=== PATIENT | female | born 1940 | race Caucasian/White ===

== ENCOUNTER 2017-12-16 11:39 | Observation (INO) ==
--- NOTE | 2017-12-16 12:01 | Emergency Department Note ---
Disposition Clinical Impression: Inability to ambulate due to hip Fall Qualifiers: Encounter type: initial encounter Qualified Code(s): W19.XXXA - Unspecified fall, initial encounter Disposition: Admitted As Inpatient Condition: Fair Referrals: Davis Abreu DO [Non-Partnered Physician] - Forms: ED Satisfaction Letter Time of Disposition: 15:35 General Adult HPI - General Chief complaint: ED Fall Stated complaint: Fall Time Seen by Provider: 12/16/17 11:47 Source: patient, EMS Mode of arrival: EMS Limitations: no limitations Nursing Notes Reviewed: Yes Vital Signs Reviewed: Yes - History of Present Illness HPI Narrative: 77-year-old female presenting to the emergency department after a mechanical fall. Patient states she recently moved into a new home. She was walking with her walker when it got caught and she into the walker and fell over. Patient denies loss of consciousness. Denies hitting her head. Patient states she is having pain in her right low back, hip and femur. Patient states she laid on the ground for approximately 30 minutes before her daughter came and got her. Denies any symptoms before the fall. Denies any chest pain, shortness of breath or dizziness. Patient denies any of those symptoms now as well. Pain Scale: 10 - Related Data Home Medications Medication Instructions Recorded Confirmed Fluvoxamine Maleate 50 mg PO DAILY 12/16/17 12/16/17 Lisinopril [Zestril] 10 mg PO DAILY 12/16/17 12/16/17 Naproxen [Naproxen] 500 mg PO DAILY 12/16/17 12/16/17 Omeprazole [PriLOSEC] 20 mg PO DAILY 12/16/17 12/16/17 Venlafaxine XR (24 HR) [Effexor XR] 150 mg PO DAILY 12/16/17 12/16/17 Allergies Allergy/AdvReac Type Severity Reaction Status Date / Time morphine Allergy "It will Verified 12/16/17 12:50 kill me" All systems ED: reviewed and negative except as stated. Constitutional: Denies: fever, chills Eyes: Reports: as per HPI ENT ED: Reports: as per HPI Cardiovascular: Denies: chest pain, palpitations, dyspnea on exertion Respiratory: Denies: cough, dyspnea, wheezes Gastrointestinal: Denies: abdominal pain, nausea, vomiting Genitourinary: Reports: as per HPI Musculoskeletal: Reports: back pain, arthralgia, myalgia Integumentary: Reports: abrasion Neurological: Denies: weakness, numbness, paresthesias Psychiatric: Reports: as per HPI Endocrine: Reports: as per HPI Hematological/Lymphatic: Reports: as per HPI Allergic/Immunologic: Reports: as per HPI Past Medical History - Past Medical History Attestation: Yes The following information was validated with the patient. Medical history: Reports: cancer, diabetes, hyperlipidemia, hypertension - Social History Smoking Status: Never smoker Smokeless Tobacco Status: No Alcohol use: Reports: none Drug use: Reports: none Physical Exam - General Limitations: no limitations General appearance: alert, in no apparent distress - Head Head exam: atraumatic, normocephalic, normal inspection - Eye Eye exam: Present: normal appearance. Absent: scleral icterus, conjunctival injection - ENT ENT exam: normal exam, mucous membranes moist - Neck Neck exam: Present: normal inspection, full ROM. Absent: tenderness, meningismus - Chest Chest inspection: Present: normal inspection, symmetric chest wall rise. Absent : tenderness, rash - Respiratory Respiratory exam: Present: normal lung sounds bilaterally. Absent: respiratory distress, wheezes - Cardiovascular Cardiovascular exam: Present: regular rate, normal rhythm, normal heart sounds - Abdominal Exam Abdominal exam: Present: soft, Non-Tender. Absent: distention, guarding, rebound - Extremities Exam Extremities exam: Present: other (Tenderness to palpation of the right hip and right femur. Superficial abrasion noted on the right tib-fib. Bilateral lower extremities neurovascularly intact.) - Back Exam Back exam: Present: normal inspection, tenderness (Tenderness at palpation of the lower lumbar spine. No tenderness to palpation of the cervical or thoracic spine.) - Neurological Exam Neurological exam: Present: alert, oriented X3 - Psychiatric Psychiatric exam: Present: normal affect, normal mood - Skin Skin exam: Present: warm Course Course Narrative: 77-year-old female presenting after a fall. Patient is alert and oriented 3 in room with stable vital signs. Denies any prodromal symptoms. At this time complains only includes right lower lumbar pain, right hip pain and right femur pain. Patient does have superficial abrasion on the right tib-fib but otherwise physical exam benign. We will plan to get radiographs of these images. Disposition pending results. Patient agrees with this plan. - Reevaluation(s) Reevaluation #1: Patient's radiographs within normal limits. Patient continues to have severe pain in the right hip and lower lumbar area. Another 50 g of fentanyl given the patient still having pain and inability to ambulate. We will perform a CT of the pelvis and lumbar spine rule out any occult fracture. Patient remains alert and oriented times [place] stable vital signs. Patient agrees with this plan. Reevaluation #2: CT within normal limits. Patient still unable to ambulate after 100 g of fentanyl. Patient does live alone therefore we will plan to admit the patient for physical therapy and pain control. Patient is alert and oriented 3 with stable vital signs here patient agrees this plan. The hospitalist diamond cutter Dr. Elias agrees to accept the patient at this time. Vital Signs Temperature 98.6 F 12/16/17 11:45 Pulse Rate 91 12/16/17 11:45 Respiratory Rate 20 12/16/17 11:45 Blood Pressure 150/92 12/16/17 11:45 O2 Sat by Pulse Oximetry 100 12/16/17 11:45 Temperature 98.6 F 12/16/17 11:45 Pulse Rate 84 12/16/17 14:08 Respiratory Rate 18 12/16/17 12:52 Blood Pressure 150/92 12/16/17 11:45 O2 Sat by Pulse Oximetry 100 12/16/17 14:08 Oxygen Delivery Oxygen Delivery Room Air Medical Decision Making - Lab Data Result diagrams: 12/16/17 14:33 12/16/17 14:33 Lab Results 12/16/17 12/16/17 12/16/17 Range/Units 14:12 14:33 14:33 WBC 11.3 H (4.3-11.1) K/mcL RBC 4.58 (3.82-4.97) M/mcL Hgb 14.2 (11.5-15.4) g/dL Hct 43.3 (35.3-44.9) % MCV 94.5 (83.0-100.0) fL MCH 31.0 (28.0-33.3) pg MCHC 32.8 (31.6-35.5) g/dL RDW 13.9 (11.5-14.5) % Plt Count 226 (140-400) K/mcL MPV 10.9 (9.4-12.4) fL Immature Gran % 0.3 (0-4) % Seg Neutrophils % 61.4 % Lymphocytes % 29.6 % Monocytes % 7.0 % Eosinophils % 1.2 % Basophils % 0.5 % Neutrophils # 6.9 (1.6-8.9) K/mcL Lymphocytes # 3.3 (0.6-4.6) K/mcL Monocytes # 0.8 (0.0-1.3) K/mcL Eosinophils # 0.1 (0.0-0.6) K/mcL Basophils # 0.1 (0.0-0.2) K/mcL Sodium 138 (136-145) mEq/L Potassium 4.8 (3.5-5.1) mEq/L Chloride 106 (98-107) mEq/L Carbon Dioxide 25 (23-29) mEq/L BUN 22 (8-23) mg/dL Creatinine 1.05 (0.60-1.20) mg/dL Est GFR ( Amer) > 60 (> 60) Est GFR (Non-Af Amer) 51 L (> 60) BUN/Creatinine Ratio 21 (6-26) Glucose 168 H (70-105) mg/dL POC Glucose 148 H (70-99) mg/dL Calculated Osmolality 293 (280-300) Calcium 9.8 (8.6-10.3) mg/dL Creatine Kinase 57 (30-223) Units/L Attestation Statement - Attestation Attestation: I, Sharif Lieberman DO, examined this patient [id number] and my medical decision-making was reviewed with Dr. Laquita Cannon, Resident Physician. I agree with the documented findings, disposition and treatment plan as described except to the extent set forth below. Please see my progress notes for details.
[2017-12-16] MEDS ORDERED: *HR* FentaNYL (PF) 100 MCG/2 ML VIAL IVP ONE ×2 (12:04→13:38)
--- NOTE | 2017-12-16 12:34 | Emergency Department Note ---
Disposition Clinical Impression: Inability to ambulate due to hip Fall Qualifiers: Encounter type: initial encounter Qualified Code(s): W19.XXXA - Unspecified fall, initial encounter Disposition: Admitted As Inpatient Condition: Fair Referrals: Davis Abreu DO [Primary Care Provider] - Forms: ED Satisfaction Letter Time of Disposition: 15:37 General Adult HPI - General Chief complaint: ED Fall Stated complaint: Fall Time Seen by Provider: 12/16/17 11:47 Source: patient, EMS Limitations: no limitations - History of Present Illness Pain Scale: 10 - Related Data Home Medications Medication Instructions Recorded Confirmed Fluvoxamine Maleate 50 mg PO DAILY 12/16/17 12/16/17 Lisinopril [Zestril] 10 mg PO DAILY 12/16/17 12/16/17 Naproxen [Naproxen] 500 mg PO DAILY 12/16/17 12/16/17 Omeprazole [PriLOSEC] 20 mg PO DAILY 12/16/17 12/16/17 Venlafaxine XR (24 HR) [Effexor XR] 150 mg PO DAILY 12/16/17 12/16/17 Allergies Allergy/AdvReac Type Severity Reaction Status Date / Time morphine Allergy "It will Verified 12/16/17 12:50 kill me" Past Medical History - Past Medical History Medical history: Reports: cancer, diabetes, hyperlipidemia, hypertension - Social History Smoking Status: Never smoker Smokeless Tobacco Status: No Alcohol use: Reports: none Drug use: Reports: none Physical Exam - General Limitations: no limitations General appearance: alert, in no apparent distress Course Vital Signs Temperature 98.6 F 12/16/17 11:45 Pulse Rate 91 12/16/17 11:45 Respiratory Rate 20 12/16/17 11:45 Blood Pressure 150/92 12/16/17 11:45 O2 Sat by Pulse Oximetry 100 12/16/17 11:45 Temperature 98.6 F 12/16/17 11:45 Pulse Rate 84 12/16/17 14:08 Respiratory Rate 18 12/16/17 12:52 Blood Pressure 150/92 12/16/17 11:45 O2 Sat by Pulse Oximetry 100 12/16/17 14:08 Oxygen Delivery Oxygen Delivery Room Air Medical Decision Making - Lab Data Result diagrams: 12/16/17 14:33 12/16/17 14:33 Lab Results 10/05/3112/16/17 12/16/17 Range/Units 14:12 14:33 14:33 WBC 11.3 H (4.3-11.1) K/mcL RBC 4.58 (3.82-4.97) M/mcL Hgb 14.2 (11.5-15.4) g/dL Hct 43.3 (35.3-44.9) % MCV 94.5 (83.0-100.0) fL MCH 31.0 (28.0-33.3) pg MCHC 32.8 (31.6-35.5) g/dL RDW 13.9 (11.5-14.5) % Plt Count 226 (140-400) K/mcL MPV 10.9 (9.4-12.4) fL Immature Gran % 0.3 (0-4) % Seg Neutrophils % 61.4 % Lymphocytes % 29.6 % Monocytes % 7.0 % Eosinophils % 1.2 % Basophils % 0.5 % Neutrophils # 6.9 (1.6-8.9) K/mcL Lymphocytes # 3.3 (0.6-4.6) K/mcL Monocytes # 0.8 (0.0-1.3) K/mcL Eosinophils # 0.1 (0.0-0.6) K/mcL Basophils # 0.1 (0.0-0.2) K/mcL Sodium 138 (136-145) mEq/L Potassium 4.8 (3.5-5.1) mEq/L Chloride 106 (98-107) mEq/L Carbon Dioxide 25 (23-29) mEq/L BUN 22 (8-23) mg/dL Creatinine 1.05 (0.60-1.20) mg/dL Est GFR ( Amer) > 60 (> 60) Est GFR (Non-Af Amer) 51 L (> 60) BUN/Creatinine Ratio 21 (6-26) Glucose 168 H (70-105) mg/dL POC Glucose 148 H (70-99) mg/dL Calculated Osmolality 293 (280-300) Calcium 9.8 (8.6-10.3) mg/dL Creatine Kinase 57 (30-223) Units/L Attestation Statement - Attestation Attestation: I, Sharif Lieberman DO, examined this patient [id number] and my medical decision-making was reviewed with Dr. Laquita Cannon, Resident Physician. I agree with the documented findings, disposition and treatment plan as described except to the extent set forth below. Please see my progress notes for details. 77-year-old female presents emergency room for evaluation of a mechanical fall home. Patient was using her walker leaning over it on her arms and the walker slipped out from underneath her. She fell forward tingling her legs in the walker. She has significant pain in her right knee and right hip as well as lower back. Her back pain appears to be an acute on chronic related issue here today secondary to trying to move from her current living situation to another place. The patient denied any head injury. She is not currently on a blood thinners. Signs otherwise stable. There is no visible signs of head trauma she is alert she is oriented she answers questions. She has no gross deformity to the bilateral shoulders elbows or wrists. Her lungs are clear heart is regular. There is no crepitus or deformity to the chest wall abdomen is soft nontender nondistended. Patient has pain with palpation over the lower lumbar spine and right hip radiates into the right leg. Pelvis appears to be stable. She has good pulses in her bilateral lower extremities in the DP and PT distribution. There is some dusky coloration to the toes but her feet are otherwise warm. Patient will be evaluated here today for possible traumatic related injuries to the lower extremities. EKG will be collected as well. Patient will have pelvic films on plain films of the extremity. Otherwise she has no other complaints or issues or precluding symptoms prior to the events here today. Family is with him at the bedside and witnessed the entire event. She did slip to the floor and had to actually have the door unlocked so she lined on the floor for anywhere from 15 minutes to half hour. Patient has no other acute medical concerns or issues this point. See detailed documentation of the physical exam, medical intervention, medical decision-making disposition the resident physician's note. 1400 X-rays were all unremarkable this time. The patient was discussed and reviewed with concern for the imaging. We will do CT imaging of the pelvis and the right leg. We will add on labs including a CPK urinalysis CBC and chemistry. Patient may not be able to ambulate and is unable to go home secondary the family not being able to take care of her. We will continue to monitor here until disposition is determined. No other acute etiology noted at this time. 1530 Patient discussed with the hospitals. Admission process will be established secondary to inability to ambulate. Patient is otherwise clinically stable. No other concerns or issues. No acute findings on CT imaging of the pelvis and right lower extremity account for the pain symptoms she is having at this point. Patient will be admitted for symptomatically control and possible social media manager consultation evaluation.
[2017-12-16 14:46] LABS: Basophils # 0.1 K/mcL (0.0-0.2); Basophils % 0.5 %; Eosinophils # 0.1 K/mcL (0.0-0.6); Eosinophils % 1.2 %; Hematocrit 43.3 % (35.3-44.9); Hemoglobin 14.2 g/dL (11.5-15.4); Immature Granulocytes % 0.3 % (0-4); Lymphocytes # 3.3 K/mcL (0.6-4.6); Lymphocytes % 29.6 %; Mean Corpuscular HGB Conc 32.8 g/dL (31.6-35.5); Mean Corpuscular Volume 94.5 fL (83.0-100.0); Mean Platelet Volume 10.9 fL (9.4-12.4); Monocytes # 0.8 K/mcL (0.0-1.3); Neutrophils # 6.9 K/mcL (1.6-8.9); Platelet Count 226 K/mcL (140-400); Red Blood Count 4.58 M/mcL (3.82-4.97); Red Cell Distribution Width 13.9 % (11.5-14.5); Segmented Neutrophils % 61.4 %
[2017-12-16 15:03] LABS: BUN/Creatinine Ratio 21 (6-26); Blood Urea Nitrogen 22 mg/dL (8-23); Calcium 9.8 mg/dL (8.6-10.3); Carbon Dioxide 25 mEq/L (23-29); Chloride 106 mEq/L (98-107); Creatine Kinase 57 Units/L (30-223); Glucose 168 mg/dL (70-105); Osmolality,Calculated 293 (280-300); Potassium 4.8 mEq/L (3.5-5.1); Sodium 138 mEq/L (136-145); eGFR For Non-African Americans 51 (> 60)
[2017-12-16] MEDS ORDERED: Naloxone 0.4 MG/ML INJ IVP PRN (18:53)
[2017-12-16] MEDS ORDERED: Acetaminophen 325 MG TABLET PO PRN (18:53)
--- NOTE | 2017-12-16 19:10 | Internal Med History&Physical ---
Date of Encounter: 12/16/17 Time of Encounter: 18:15 Internal Medicine - H&P: HPI Chief complaint: Fall Admitted From: Home Plans for Post Hospital Care: Home History of present illness: Ms. Hernandez is a 77 year old female with past medical history significant for diabetes, hypertension, hyperlipidemia, depression, acid reflux, and chronic back pain who presents following a mechanical fall today at home from a standing height. Denies hitting head or loss of consciousness. Was leaning over walker with wheels and tripped over threshold in her house. States she landed on her right leg which is where her pain is centralized in addition to her back. Has chronic lower bilateral back pain but the pain is more on the right side of her back with her right leg pain currently. Pain is rated at 6/ 10 at the worst and is described as an aching soreness. Pain is exacerbated with movement and improved with rest and pain medication. Tried using heating pad at home without relief. Normally ambulates without assistive devices but recently has been moving into a new home and has aggravated her chronic back pain and therefore has needed to use a wheeled walker the past few days. Does not regularly check blood sugar but states it averages in the low to mid 100's and is currently well controlled. Also does not regularly check blood pressure at home but reports that it is also currently well controlled. Past Med Surg Social Fam HX - Past Medical History Medical history: cancer, diabetes, hyperlipidemia, hypertension Additional medical history: breast cancer. chronic back pain - Past Surgical History Additional surgical history: left breast lumpectomy. bilateral knees - Social History Smoking Status: Never smoker Smokeless Tobacco Status: No Alcohol use: none Drug use: none - Family History Mother Hx Family Cardiac Disorders: Yes Hx Family Cancer: Yes Father Hx Family Cardiac Disorders: Yes Hx Family Cancer: Yes Internal Medicine - H&P: Meds Fluvoxamine Maleate 50 mg PO DAILY 12/16/17 [History] Lisinopril [Zestril] 10 mg PO DAILY 12/16/17 [History] Naproxen [Naproxen] 500 mg PO DAILY 12/16/17 [History] Omeprazole [PriLOSEC] 20 mg PO DAILY 12/16/17 [History] Venlafaxine XR (24 HR) [Effexor XR] 150 mg PO DAILY 12/16/17 [History] 3 Allergy/AdvReac Type Severity Reaction Status Date / Time morphine Allergy "It will Verified 12/16/17 12:50 kill me" All Systems PM: A 10-system review of systems was performed and is negative for pertinent findings except as documented above in the HPI. - Constitutional Vitals: Temp Pulse Resp BP Pulse Ox 98.6 F 84 16 109/79 100 12/16/17 11:45 12/16/17 14:08 12/16/17 16:30 12/16/17 16:30 12/16/17 14:08 Exam: General: Alert and oriented. Skin:Normal color, no rash. Laceration noted to right lower extremity, dry/ intact, open to air. HEENT: Pupils equal, round and reactive. Cardiovascular:Normal S1 & S2, no rubs, murmurs or gallops. No JVD. Pulse regular. Lungs:Normal breath sounds, no wheezes or crackles. Abdomen:Soft, non-tender, no rigidity. Extremities:No deformity, no edema, no joint swelling or clubbing. Tenderness noted on palpation to right pelvic and right femur area. Distal PMS intact. Neurological:Normal cognition and motor skills. Pulses:Carotid and radial pulses normal +2. Rest of the physical exam is non contributory. Internal Med - H&P Results - Labs CBC & Chem 7: 12/16/17 14:33 12/16/17 14:33 - Assessment and plan (1) Fall Current Visit: Yes Status: Acute Assessment and plan: Pain control with Toradol and Tylenol. Ice packs as needed. Up with assist only. Qualifiers: Encounter type: initial encounter Qualified Code(s): W19.XXXA - Unspecified fall, initial encounter (2) Inability to ambulate due to hip Current Visit: Yes Status: Acute Assessment and plan: Physical therapy consulted for ambulation. Social work consulted for any potential discharge needs. (3) Increased white blood cell count Current Visit: Yes Status: Acute Assessment and plan: No source of infection. Repeat labs in a.m. Qualifiers: Leukocytosis type: unspecified Qualified Code(s): D72.829 - Elevated white blood cell count, unspecified (4) Diabetes mellitus Current Visit: Yes Status: Chronic Assessment and plan: Continue home medications. Diabetic diet. ACHS accucheck. Qualifiers: Diabetes mellitus type: type 2 Diabetes mellitus intermediate frame tender insulin use: without usp use Diabetes mellitus complication status: without complication Qualified Code(s): E11.9 - Type 2 diabetes mellitus without complications - Time Spent With Patient Total time spent is greater than 50% in coordination of care (as documented) at patient's floor/unit and/or counseling patient:
[2017-12-16] MEDS ORDERED: Dextrose Gel 15 GM/37.5 ML TUBE PO PRN ×2 (19:18)
[2017-12-16] MEDS ORDERED: D5% in Water 1,000 ML IVC PRN (19:18)
[2017-12-16] MEDS ORDERED: *HR* Dextrose 50 % in Water (Syg) 50 ML SYRINGE IVP PRN (19:18)
[2017-12-16] MEDS: Ketorolac 15 MG/ML VIAL IVP PRN (21:49)
[2017-12-17 06:39] LABS: Basophils % 0.6 %; Eosinophils # 0.2 K/mcL (0.0-0.6); Eosinophils % 3.2 %; Hematocrit 40.1 % (35.3-44.9); Hemoglobin 13.2 g/dL (11.5-15.4); Immature Granulocytes % 0.1 % (0-4); Lymphocytes # 2.9 K/mcL (0.6-4.6); Lymphocytes % 40.1 %; Mean Corpuscular HGB Conc 32.9 g/dL (31.6-35.5); Mean Corpuscular Hemoglobin 31.1 pg (28.0-33.3); Mean Corpuscular Volume 94.6 fL (83.0-100.0); Monocytes # 0.7 K/mcL (0.0-1.3); Monocytes % 10.2 %; Neutrophils # 3.3 K/mcL (1.6-8.9); Platelet Count 204 K/mcL (140-400); Red Blood Count 4.24 M/mcL (3.82-4.97); Red Cell Distribution Width 14.2 % (11.5-14.5); Segmented Neutrophils % 45.8 %
[2017-12-17 07:00] LABS: BUN/Creatinine Ratio 24 (6-26); Blood Urea Nitrogen 24 mg/dL (8-23); Calcium 9.2 mg/dL (8.6-10.3); Carbon Dioxide 20 mEq/L (23-29); Chloride 108 mEq/L (98-107); Glucose 177 mg/dL (70-105); Osmolality,Calculated 296 (280-300); Sodium 139 mEq/L (136-145); eGFR For Non-African Americans 53 (> 60)
--- NOTE | 2017-12-17 07:40 | Internal Med Progress Note ---
Hospitalist Progress Note - Encounter Date of Encounter: 12/17/17 Time of Encounter: 07:40 - Exam Vitals: Temp Pulse Resp BP Pulse Ox 97.7 F 63 16 105/61 94 12/17/17 06:53 12/17/17 06:53 12/17/17 06:53 12/17/17 06:53 12/17/17 06:53 Exam: General: Alert and oriented. Skin:Normal color, no rash. Laceration noted to right lower extremity, dry/ intact, open to air. HEENT: Pupils equal, round and reactive. Cardiovascular:Normal S1 & S2, no rubs, murmurs or gallops. No JVD. Pulse regular. Lungs:Normal breath sounds, no wheezes or crackles. Abdomen:Soft, non-tender, no rigidity. Extremities:No deformity, no edema, no joint swelling or clubbing. Tenderness noted on palpation to right pelvic and right femur area. Distal PMS intact. Neurological:Normal cognition and motor skills. Pulses:Carotid and radial pulses normal +2. Rest of the physical exam is non contributory. - Assessment and Plan (1) Fall Current Visit: Yes Status: Acute Assessment and Plan: CT of hip and pelvis negative for any fractures or abnormalities Pain control with Toradol and Tylenol. Ice packs as needed. Up with assist only. (2) Inability to ambulate due to hip Current Visit: Yes Status: Acute Assessment and Plan: Physical therapy consulted for ambulation. Social work consulted for any potential discharge needs. (3) Increased white blood cell count Current Visit: Yes Status: Acute Assessment and Plan: Resolved (4) Diabetes mellitus Current Visit: Yes Status: Chronic Assessment and Plan: Continue home medications. Diabetic diet. ACHS accucheck. DVT Prophylaxis: SCDs - Time Spent with Patient Total time spent is greater than 50% in coordination of care (as documented) at patient's floor/unit and/or counseling patient: Internal Medicine: Result - Labs CBC & Chem 7: 12/17/17 06:13 12/17/17 06:13 Labs: Short CBC 12/17/17 Range/Units 06:13 WBC 7.2 (4.3-11.1) K/mcL Hgb 13.2 (11.5-15.4) g/dL Hct 40.1 (35.3-44.9) % Plt Count 204 (140-400) K/mcL Neutrophils # 3.3 (1.6-8.9) K/mcL BMP 12/17/17 06:13 Sodium 139 Potassium 4.0 Chloride 108 H Carbon Dioxide 20 L BUN 24 H Creatinine 1.02 Glucose 177 H Calcium 9.2 Consult Discharge Plan - Plan Referrals: Davis Abreu DO [Primary Care Provider] - (1) Fall Qualifiers: Encounter type: initial encounter Qualified Code(s): W19.XXXA - Unspecified fall, initial encounter (3) Increased white blood cell count Qualifiers: Leukocytosis type: unspecified Qualified Code(s): D72.829 - Elevated white blood cell count, unspecified (4) Diabetes mellitus Qualifiers: Diabetes mellitus type: type 2 Diabetes mellitus intermediate project manager insulin use: without intermediate project manager use Diabetes mellitus complication status: without complication Qualified Code(s): E11.9 - Type 2 diabetes mellitus without complications
[2017-12-17] MEDS ORDERED: *HR* Glimepiride 2 MG TABLET PO SCH (08:00)
[2017-12-17] MEDS ORDERED: *HR* FentaNYL (PF) 100 MCG/2 ML VIAL IVP PRN (08:58)
[2017-12-17] MEDS: Ketorolac 15 MG/ML VIAL IVP PRN ×2 (09:14→19:08)
[2017-12-17] MEDS: Venlafaxine XR (24 HR) 150 MG CAP.ER.24H PO SCH (09:15)
[2017-12-17] MEDS: Insulin LISPRO 300 UNITS/3 ML VIAL SQ SCH ×2 (19:38→22:41)
[2017-12-17] MEDS ORDERED: Gabapentin 100 MG CAPSULE PO ONE (20:06)
[2017-12-17] MEDS: (Linaclotide [Linzess] 145 MCG) PO SCH (22:20)
[2017-12-18 02:23] LABS: Calcium 9.1 mg/dL (8.6-10.3); Potassium 3.9 mEq/L (3.5-5.1)
[2017-12-18] MEDS: Insulin LISPRO 300 UNITS/3 ML VIAL SQ SCH ×4 (08:04→20:58)
[2017-12-18] MEDS: (Linaclotide [Linzess] 145 MCG) PO SCH (08:35)
[2017-12-18] MEDS: Venlafaxine XR (24 HR) 150 MG CAP.ER.24H PO SCH (08:35)
[2017-12-18] MEDS ORDERED: *HR* HYDROcodone/Acet 5/325 mg TABLET PO PRN ×2 (09:22→10:20)
[2017-12-18] MEDS ORDERED: *HR* FentaNYL (PF) 100 MCG/2 ML VIAL IVP PRN (09:24)
--- NOTE | 2017-12-18 09:25 | Internal Med Progress Note ---
Hospitalist Progress Note - Encounter Date of Encounter: 12/18/17 Time of Encounter: 09:00 - Subjective Interval History: Patient is complaining of severe lower back pain radiating to her right lower extremities worse with moving her right lower extremities. Patient stated she could not ambulate at all - Exam Vitals: Temp Pulse Resp BP Pulse Ox 97.8 F 80 18 96/52 95 12/18/17 07:26 12/18/17 07:26 12/18/17 07:26 12/18/17 07:26 12/18/17 07:26 Exam: General: Alert and oriented. Skin:Normal color, no rash. Laceration noted to right lower extremity, dry/ intact, open to air. HEENT: Pupils equal, round and reactive. Cardiovascular:Normal S1 & S2, no rubs, murmurs or gallops. No JVD. Pulse regular. Lungs:Normal breath sounds, no wheezes or crackles. Abdomen:Soft, non-tender, no rigidity. Extremities:No deformity, no edema, no joint swelling or clubbing. Tenderness noted on palpation to right pelvic and right femur area. Leg raising test positive right lower extremities, diffuse tenderness right paraspinal area lumbar spine Neurological:Normal cognition and motor skills. Pulses:Carotid and radial pulses normal +2. Rest of the physical exam is non contributory. - Assessment and Plan (1) Fall Current Visit: Yes Status: Acute (2) Inability to ambulate due to hip Current Visit: Yes Status: Acute (3) Increased white blood cell count Current Visit: Yes Status: Acute (4) Diabetes mellitus Current Visit: Yes Status: Chronic - Summary of Assessment and Plan Summary of Assessment and Plan: Possible disc prolapse, we will add steroids, Prednisone 40 mg BID, Will check MRI [place] spine , PT OT , add muscle relaxant, Lidoderm patch it to placed right paraspinal area lumbar spine, ambulate patient as tolerated, if MRI negative and pain under good control , possible discharge next a.m. - Time Spent with Patient Total time spent is greater than 50% in coordination of care (as documented) at patient's floor/unit and/or counseling patient: 25 - 35 minutes Internal Medicine: Result - Labs CBC & Chem 7: 12/17/17 06:13 12/18/17 01:13 Labs: BMP 12/18/17 01:13 Sodium 137 Potassium 3.9 Chloride 107 Carbon Dioxide 23 BUN 27 H Creatinine 1.14 Glucose 146 H Calcium 9.1 Consult Discharge Plan - Plan Referrals: Davis Abreu DO [Primary Care Provider] - (1) Fall Qualifiers: Encounter type: initial encounter Qualified Code(s): W19.XXXA - Unspecified fall, initial encounter (3) Increased white blood cell count Qualifiers: Leukocytosis type: unspecified Qualified Code(s): D72.829 - Elevated white blood cell count, unspecified (4) Diabetes mellitus Qualifiers: Diabetes mellitus type: type 2 Diabetes mellitus skilled nursing insulin use: without adjunct faculty for medical terminology use Diabetes mellitus complication status: without complication Qualified Code(s): E11.9 - Type 2 diabetes mellitus without complications
[2017-12-18] MEDS ORDERED: *HR* LORazepam 2 MG/ML VIAL IVP ONE (09:56)
[2017-12-18] MEDS ORDERED: *HR* OxyCODONE Immed Rel 5 MG TABLET PO PRN (10:22)
[2017-12-18] MEDS ORDERED: methylPREDNISolone 125 MG/2 ML VIAL IVP ONE (14:48)
[2017-12-19] MEDS: predniSONE 20 MG TABLET PO SCH (07:23)
[2017-12-19] MEDS: Venlafaxine XR (24 HR) 150 MG CAP.ER.24H PO SCH (07:23)
[2017-12-19] MEDS: (Linaclotide [Linzess] 145 MCG) PO SCH (07:30)
[2017-12-19] MEDS: Insulin LISPRO 300 UNITS/3 ML VIAL SQ SCH ×4 (07:30→21:31)
--- NOTE | 2017-12-19 11:43 | Internal Med Progress Note ---
Hospitalist Progress Note - Encounter Date of Encounter: 12/19/17 Time of Encounter: 10:00 - Subjective Interval History: Patient continue to have trouble with ambulation, complaining of severe lower back pain radiating to her right lower extremities, mild improvement compared to yesterday, today she was able to sit at the edge of the bed . No motor or sensory changes l - Exam Vitals: Temp Pulse Resp BP Pulse Ox 97.6 F 7 16 122/75 94 12/19/17 07:14 12/19/17 07:14 12/19/17 07:14 12/19/17 07:14 12/19/17 07:14 Exam: General: Alert and oriented. HEENT: Pupils equal, round and reactive. Cardiovascular:Normal S1 & S2, no rubs, murmurs or gallops. No JVD. Pulse regular. Lungs:Normal breath sounds, no wheezes or crackles. Abdomen:Soft, non-tender, no rigidity. Extremities:No deformity, no edema, no joint swelling or clubbing. Tenderness noted on palpation to right hip, Leg raising test positive right lower extremities, diffuse tenderness right paraspinal area lumbar spine Neurological:Normal cognition and motor skills. Pulses:Carotid and radial pulses normal +2. Rest of the physical exam is non contributory. - Assessment and Plan (1) Fall Current Visit: Yes Status: Acute (2) Inability to ambulate due to hip Current Visit: Yes Status: Acute (3) Increased white blood cell count Current Visit: Yes Status: Acute (4) Diabetes mellitus Current Visit: Yes Status: Chronic - Summary of Assessment and Plan Summary of Assessment and Plan: Discussed with orthopedic team, imaging study reviewed by orthopedic, he recommended to continue with pain medication, if it is not better consider spine surgery consult. Will add Neurontin, add another Lidoderm patch, add nonsteroidal anti inflammatory I had long discussion with patient along with physical therapy team. Need further evaluation after adjusting the medication, need hospice stay more than 2 Midnight - Time Spent with Patient Total time spent is greater than 50% in coordination of care (as documented) at patient's floor/unit and/or counseling patient: 25 - 35 minutes Internal Medicine: Result - Labs CBC & Chem 7: 12/17/17 06:13 12/18/17 01:13 - Impressions Impressions Lumbar Spine MRI 12/18/17 09:18 IMPRESSION: Mild diffuse degenerative disc disease within the lumbar spine without evidence of focal disc protrusion or stenosis. 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
[2017-12-19] MEDS: Gabapentin 100 MG CAPSULE PO SCH ×3 (12:22→21:31)
[2017-12-20] MEDS: Insulin LISPRO 300 UNITS/3 ML VIAL SQ SCH (07:58)
[2017-12-20] MEDS: predniSONE 20 MG TABLET PO SCH (07:59)
[2017-12-20] MEDS: Venlafaxine XR (24 HR) 150 MG CAP.ER.24H PO SCH (07:59)
[2017-12-20] MEDS: Gabapentin 100 MG CAPSULE PO SCH (07:59)
[2017-12-20] MEDS: (Linaclotide [Linzess] 145 MCG) PO SCH (07:59)
[2017-12-20] MEDS ORDERED: Insulin LISPRO 300 UNITS/3 ML VIAL SQ SCH (08:52)
[2017-12-20 10:30] VITALS: BP 118/82
--- NOTE | 2017-12-20 10:34 | Discharge Summary ---
- NOTES TO OUTPATIENT PROVIDER Notes to Outpatient Provider: Patient has mechanical fall, came with low back pain radiating to right lower extremities, CAT scan lumbar spine CAT scan (x- ray lower extremities done no evidence of fat fracture or disc prolapse, patient placed on pain medication, her condition is better ,patient was transferred to rehabilitation. If her condition is getting worse again. Per Ortho may consider referral to spine surgery Date of Encounter: 12/20/17 Time of Encounter: 10:27 - Discharge Diagnosis (1) Fall Priority: Primary Status: Acute Qualifiers: Encounter type: initial encounter Qualified Code(s): W19.XXXA - Unspecified fall, initial encounter (2) Inability to ambulate due to hip Priority: Primary Status: Acute (3) Increased white blood cell count Priority: Secondary Status: Acute Qualifiers: Leukocytosis type: unspecified Qualified Code(s): D72.829 - Elevated white blood cell count, unspecified (4) Diabetes mellitus Priority: Secondary Status: Chronic Qualifiers: Diabetes mellitus type: type 2 Diabetes mellitus alf insulin use: without alf use Diabetes mellitus complication status: without complication Qualified Code(s): E11.9 - Type 2 diabetes mellitus without complications (5) Back pain of lumbosacral region with sciatica Priority: Primary Status: Acute Hospital course: Ms. Hernandez is a 77 year old female admitted to the hospital after mechanical fall with complain of severe lower back pain right hip pain right lower extremity pain. Patient was unable to ambulate at all. CAT scan lumbar spine CAT scan benefits were negative for any fracture, X ray hip no evidence of fracture, we started patient on pain medication, we will continue to monitor her condition, her pain was not improving. MRI lumbar spine ordered no evidence of disc prolapse. Discussed with orthopedic surgery he recommended conservative management for now if not better consider spine surgery referral. Patient condition markedly improved after starting Cymbalta and Neurontin and small dose of steroids. Patient had neuropathic pain. Patient discharged to [facility] for rehabilitation. In view of starting Cymbalta will cut back on the dose of Effexor need to have close monitoring of her symptoms. Counseling patient about physical therapy and patient is therapy. - Time Spent with Patient Total time spent providing and/or coordinating discharge services: Greater than 30 minutes - Discharge Medications Prescriptions: OxyCODONE Immed Rel [Roxicodone 5 MG] 5 mg PO Q6HR PRN 7 Days #28 tablet PRN Reason: Severe Pain Cyanocobalamin (B-12) [Vitamin B12] 1,000 mcg PO DAILY #90 tablet Ergocalciferol (VITAMIN D2) [Drisdol (50,000 Unit)] 50,000 unit PO QWEEK #15 capsule Home Medications: Fluvoxamine Maleate 50 mg PO HS 12/16/17 [History] Lisinopril [Zestril] 10 mg PO DAILY 12/16/17 [History] Omeprazole [PriLOSEC] 20 mg PO DAILY 12/16/17 [History] Glimepiride [Amaryl] 1 mg PO DAILY 12/17/17 [History] Imipramine HCl [Tofranil] 50 mg PO HS 12/17/17 [History] Linaclotide [Linzess] 145 mcg PO DAILY 12/17/17 [History] Acetaminophen [Tylenol] 650 mg PO TID #30 tablet 12/20/17 [Rx] Cyanocobalamin (B-12) [Vitamin B12] 1,000 mcg PO DAILY #90 tablet 12/20/17 [Rx] Cyclobenzaprine [Flexeril] 10 mg PO TID PRN #30 tablet 12/20/17 [Rx] DULoxetine [Cymbalta] 30 mg PO DAILY capsule.dr 12/20/17 [Rx] Ergocalciferol (VITAMIN D2) [Drisdol (50,000 Unit)] 50,000 unit PO QWEEK #15 capsule 12/20/17 [Rx] Gabapentin [Neurontin] 200 mg PO TID capsule 12/20/17 [Rx] Lidocaine Patch [Lidoderm 5% patch] 2 each TP DAILY adh..patch 12/20/17 [Rx] OxyCODONE Immed Rel [Roxicodone 5 MG] 5 mg PO Q6HR PRN 7 Days #28 tablet [Rx] Venlafaxine XR (24 HR) [Effexor Xr] 75 mg PO DAILY #0 12/20/17 [Rx] predniSONE [PredniSONE] 40 mg PO DAILY #3 tablet 12/20/17 [Rx] Allergies/Adverse Reactions: 3 Allergy/AdvReac Type Severity Reaction Status Date / Time morphine Allergy "It will Verified 12/16/17 12:50 kill me" Date of admission: 12/16/17 15:41 Primary care physician: Davis Abreu Consults: 12/16/17 17:27 Consult to Pastoral Services [CONS] Routine Comment: Consult to Surgery Assistant [CONS] Routine Reason for SW Consult: Pt fell at home, lives home alone, develop POC 12/16/17 18:59 Consult to Physical Therapy [CONS] Routine Comment: Evaluate, develop and implement POC Reason for Consult: Fall at home today. No fractures or injuries found on workup. Will need PT to help return to baseline. Does patient have active BEDREST order?: No Is patient medically & hemodynamically stable?: Yes 12/17/17 11:57 Consult to Occupational Therapy [CONS] Routine Comment: Evaluate, develop and implement POC Reason for Consult: PT recommending SNF - Need OT eval for ECF placement Does patient have active BEDREST order?: No Is patient medically & hemodynamically stable?: Yes Patient assessed for mobility or mobilized this visit?: No Discharging clinician: Preeti Gardner Anticipated date of discharge: 12/20/17 - Constitutional Vitals: Temp Pulse Resp BP Pulse Ox 97.5 F L 75 15 122/75 95 12/20/17 07:25 12/20/17 07:25 12/20/17 07:25 12/20/17 07:25 12/20/17 07:25 Exam: General: Alert and oriented. HEENT: Pupils equal, round and reactive. Cardiovascular:Normal S1 & S2, no rubs, murmurs or gallops. No JVD. Pulse regular. Lungs:Normal breath sounds, no wheezes or crackles. Abdomen:Soft, non-tender, no rigidity. Extremities:No deformity, no edema, no joint swelling or clubbing. Tenderness noted on palpation to right hip, Leg raising test positive right lower extremities, diffuse tenderness right paraspinal area lumbar spine Neurological:Normal cognition and motor skills. Pulses:Carotid and radial pulses normal +2. Rest of the physical exam is non contributory. - Patient Status Disposition: Transfer SNF Condition: Fair Functional capacity at discharge: uses cane/walker Overall status at discharge: patient is progressing back to baseline - Discharge Instructions Follow Up With: Davis Abreu DO [Primary Care Provider] - - Diet and Activity Activity: ambulate only with your walker Diet: diabetic diet, low fat, low cholesterol
--- NOTE | 2017-12-20 10:43 | Physician Discharge Referral ---
ExtendedCare Referral Info Institutional Level of Care: Skilled - Diagnosis (1) Fall Priority: Primary Status: Acute (2) Inability to ambulate due to hip Priority: Primary Status: Acute (3) Increased white blood cell count Priority: Secondary Status: Acute (4) Diabetes mellitus Priority: Secondary Status: Chronic (5) Back pain of lumbosacral region with sciatica Priority: Primary Status: Acute Prognosis: Good Aware of Diagnosis: Patient Aware of Prognosis: Patient - Transfer Medications Prescriptions: OxyCODONE Immed Rel [Roxicodone 5 MG] 5 mg PO Q6HR PRN 7 Days #28 tablet PRN Reason: Severe Pain Cyanocobalamin (B-12) [Vitamin B12] 1,000 mcg PO DAILY #90 tablet Ergocalciferol (VITAMIN D2) [Drisdol (50,000 Unit)] 50,000 unit PO QWEEK #15 capsule Home Medications: Fluvoxamine Maleate 50 mg PO HS 12/16/17 [History] Lisinopril [Zestril] 10 mg PO DAILY 12/16/17 [History] Omeprazole [PriLOSEC] 20 mg PO DAILY 12/16/17 [History] Glimepiride [Amaryl] 1 mg PO DAILY 12/17/17 [History] Imipramine HCl [Tofranil] 50 mg PO HS 12/17/17 [History] Linaclotide [Linzess] 145 mcg PO DAILY 12/17/17 [History] Acetaminophen [Tylenol] 650 mg PO TID #30 tablet 12/20/17 [Rx] Cyanocobalamin (B-12) [Vitamin B12] 1,000 mcg PO DAILY #90 tablet 12/20/17 [Rx] Cyclobenzaprine [Flexeril] 10 mg PO TID PRN #30 tablet 12/20/17 [Rx] DULoxetine [Cymbalta] 30 mg PO DAILY capsule.dr 12/20/17 [Rx] Ergocalciferol (VITAMIN D2) [Drisdol (50,000 Unit)] 50,000 unit PO QWEEK #15 capsule 12/20/17 [Rx] Gabapentin [Neurontin] 200 mg PO TID capsule 12/20/17 [Rx] Lidocaine Patch [Lidoderm 5% patch] 2 each TP DAILY adh..patch 12/20/17 [Rx] OxyCODONE Immed Rel [Roxicodone 5 MG] 5 mg PO Q6HR PRN 7 Days #28 tablet [Rx] Venlafaxine XR (24 HR) [Effexor Xr] 75 mg PO DAILY #0 12/20/17 [Rx] predniSONE [PredniSONE] 40 mg PO DAILY #3 tablet 12/20/17 [Rx] Allergies/Adverse Reactions: 3 Allergy/AdvReac Type Severity Reaction Status Date / Time morphine Allergy "It will Verified 12/16/17 12:50 kill me" - Respiratory Orders Smoking Cessation: Smoking cessation has been advised. For more information, call the [place] Tobacco Quit Line at 4-187-WWDJNOW. - Advance Directives Code Status: Full Code - Mobility Orders Ambulate - Rehabiliation Orders Rehab Potential: Good - Diet Orders Cardiac CERTIFICATION: I certify that the transfer of the above named patient to an Extended Care Facility is necessary for the continuing treatment of the diagnosis listed. The above information is true and accurate reflection of patient's current condition. Confidential - Redisclosure prohibited without a patient's written consent.
== END 2017-12-20 13:44 ==
LOC: 3ANU 11:39 → EMEROOARM 11:39 → 3ANU 16:45
PROVIDERS: ADMIT Internal Medicine; ATTEND Internal Medicine